=== PATIENT | female | born 1950 | race Asian ===

== ENCOUNTER 2020-01-18 05:05 | Day surgery (SDC) | payer MEDICARE, OTHER ==
[~2020-01-18] VITALS: Ht 149.9 cm; Wt 51.8 kg
[2020-01-18] MEDS ORDERED: HYALURONATE SODIUM 12 MG/ML 0.8 ML SYRINGE IO ONE (05:06)
[2020-01-18] MEDS ORDERED: POVIDONE-IODINE 10% 15 ML SOLUTION UD TP ONE (05:06)
[2020-01-18] MEDS ORDERED: LIDOCAINE/PF 1% 2 ML VIAL IM ONE (05:06)
[2020-01-18] MEDS ORDERED: MIDAZOLAM HCL 2 MG/2 ML VIAL IVP ONE (05:06)
[2020-01-18] MEDS ORDERED: FentaNYL CITRATE-PF 100 MCG/2 ML VIAL IVP ONE (05:06)
[2020-01-18] MEDS ORDERED: EPINEPHrine 1:1,000 [1 MG/ML] AMP IM ONE (05:06)
[2020-01-18] MEDS ORDERED: HYALURONATE SOD/CHONDROITIN SOD 0.5 ML VIAL IO ONE (05:06)
[2020-01-18] MEDS ORDERED: TETRACAINE HCL/PF 0.5% 4 ML OPHTHALMIC SOLUTION ONE (05:07)
[2020-01-18] MEDS ORDERED: FLURBIPROFEN SODIUM 0.03% 2.5 ML OPHTHALMIC SOLUTION ONE (05:07)
[2020-01-18] MEDS ORDERED: CIPROFLOXACIN HCL 0.3% 2.5 ML OPHTHALMIC SOLUTION ONE (05:07)
[2020-01-18] MEDS ORDERED: CYCLOPENTOLATE HCL 1% 2 ML OPHTHALMIC SOLUTION ONE (05:07)
[2020-01-18] MEDS ORDERED: TROPICAMIDE 1% 2 ML OPHTHALMIC SOLUTION ONE (05:07)
[2020-01-18] MEDS ORDERED: RINGERS SOLUTION,LACTATED 500 ML IV ONE ×2 (05:07→06:00)
[2020-01-18] MEDS ORDERED: LEVO112T4 PO (05:50)
[2020-01-18] MEDS ORDERED: FAMO1TAB29 PO (05:50)
[2020-01-18] MEDS ORDERED: TIMO.5OS OD (05:50)
[2020-01-18] MEDS ORDERED: DICL2.5D8 OU (05:50)
[2020-01-18] MEDS ORDERED: PREDAOS OU (05:50)
[2020-01-18] MEDS ORDERED: FOSI10TA6 PO (05:50)
[2020-01-18] MEDS ORDERED: MOXIOS OU (05:50)
[2020-01-18] MEDS ORDERED: ASPI-728 PO (05:50)
[2020-01-18] MEDS ORDERED: ATOR20TA86 PO (05:50)
[2020-01-18] MEDS ORDERED: UBID200C18 PO (05:50)
[2020-01-18] MEDS ORDERED: [UNRECOGNIZED DRUG - OTHER] PO (05:50)
[2020-01-18] MEDS ORDERED: FLAX100038 PO (05:50)
[2020-01-18] MEDS ORDERED: SITA1TAB6 PO (05:50)
[2020-01-18] MEDS ORDERED: BIMA12.5OS OU (05:50)
[2020-01-18] MEDS ORDERED: PYRI-12 PO (05:50)
[2020-01-18 06:01] LABS: GLUCOMETER DEV NAME(LOC) SDS.; GLUCOSE,POINT OF CARE 129 MG/DL (70-110)
[2020-01-18] MEDS: TROPICAMIDE 1% 2 ML OPHTHALMIC SOLUTION OD SCH ×3 (06:05→06:25)
[2020-01-18] MEDS: CYCLOPENTOLATE HCL 1% 2 ML OPHTHALMIC SOLUTION OD SCH ×3 (06:06→06:25)
[2020-01-18] MEDS: FLURBIPROFEN SODIUM 0.03% 2.5 ML OPHTHALMIC SOLUTION OD SCH ×3 (06:06→06:25)
[2020-01-18] MEDS: CIPROFLOXACIN HCL 0.3% 2.5 ML OPHTHALMIC SOLUTION OD SCH ×3 (06:06→06:26)
[2020-01-18] MEDS ORDERED: TETRACAINE HCL/PF 0.5% 4 ML OPHTHALMIC SOLUTION OD ONE (07:00)
== END 2020-01-18 08:32 | disposition home or self-care (01) ==
LOC: SURGERY 05:05
PROVIDERS: ATTEND Ophthalmology
DX: E11.36 Type 2 diabetes mellitus with diabetic cataract (principal); H25.11 Age-related nuclear cataract, right eye; E11.39 Type 2 diabetes mellitus with other diabetic ophthalmic complication; H40.1112 Primary open-angle glaucoma, right eye, moderate stage; I10 Essential (primary) hypertension; Z79.899 Other long term (current) drug therapy; Z79.4 Long term (current) use of insulin; Z11.59 Encounter for screening for other viral diseases
CPT/HCPCS: 65820; 66984; 82962; 87635; 93005; J0171; J2250; J3010; J3490 ×2; J7120; V2632

== ENCOUNTER 2020-02-01 05:14 | Day surgery (SDC) | payer MEDICARE, OTHER ==
[~2020-02-01] VITALS: Ht 149.9 cm; Wt 51.8 kg
[~2020-02-01 05:14] MED LIST: ASPI-728 PO; ATOR20TA86 PO; BIMA12.5OS OU; CIPROFLOXACIN HCL 0.3% 2.5 ML OPHTHALMIC SOLUTION ONE; CYCLOPENTOLATE HCL 1% 2 ML OPHTHALMIC SOLUTION ONE; DICL2.5D8 OU; FAMO1TAB29 PO; FLAX100038 PO; FLURBIPROFEN SODIUM 0.03% 2.5 ML OPHTHALMIC SOLUTION ONE; FOSI10TA6 PO; LEVO112T4 PO; MOXIOS OU; PREDAOS OU; PYRI-12 PO; RINGERS SOLUTION,LACTATED 500 ML IV ONE; SITA1TAB6 PO; TETRACAINE HCL/PF 0.5% 4 ML OPHTHALMIC SOLUTION ONE; TIMO.5OS OD; TROPICAMIDE 1% 2 ML OPHTHALMIC SOLUTION ONE; UBID200C18 PO; [UNRECOGNIZED DRUG - OTHER] PO
[2020-02-01] MEDS ORDERED: MIDAZOLAM HCL 2 MG/2 ML VIAL IVP ONE (05:15)
[2020-02-01] MEDS ORDERED: FentaNYL CITRATE-PF 100 MCG/2 ML VIAL IVP ONE (05:15)
[2020-02-01] MEDS: FLURBIPROFEN SODIUM 0.03% 2.5 ML OPHTHALMIC SOLUTION OS SCH ×3 (05:52→06:06)
[2020-02-01] MEDS: CYCLOPENTOLATE HCL 1% 2 ML OPHTHALMIC SOLUTION OS SCH ×3 (05:52→06:06)
[2020-02-01] MEDS: TROPICAMIDE 1% 2 ML OPHTHALMIC SOLUTION OS SCH ×3 (05:52→06:06)
[2020-02-01] MEDS: CIPROFLOXACIN HCL 0.3% 2.5 ML OPHTHALMIC SOLUTION OS SCH ×3 (05:53→06:06)
[2020-02-01] MEDS ORDERED: RINGERS SOLUTION,LACTATED 500 ML IV ONE (06:00)
[2020-02-01] MEDS ORDERED: TETRACAINE HCL/PF 0.5% 4 ML OPHTHALMIC SOLUTION OS ONE (07:00)
== END 2020-02-01 09:30 | disposition home or self-care (01) ==
LOC: SURGERY 05:14
PROVIDERS: ATTEND Ophthalmology
DX: E10.36 Type 1 diabetes mellitus with diabetic cataract (principal); H25.12 Age-related nuclear cataract, left eye; I10 Essential (primary) hypertension; E10.39 Type 1 diabetes mellitus with other diabetic ophthalmic complication; H40.1112 Primary open-angle glaucoma, right eye, moderate stage; Z79.899 Other long term (current) drug therapy; Z79.4 Long term (current) use of insulin; Z11.59 Encounter for screening for other viral diseases
CPT/HCPCS: 66984; 87635; J2250; J3010; J7120; V2632